=== PATIENT | female | born 1985 | race Caucasian/White ===

== ENCOUNTER 2017-09-20 21:44 | Emergency (ER) | payer SELFPAY ==
[~2017-09-20] VITALS: Ht 162.6 cm; Wt 94.3 kg
[2017-09-20] MEDS ORDERED: SODIUM CHLORIDE 0.9% 1,000 ML IV ONE (23:52)
[2017-09-20] MEDS ORDERED: ONDANSETRON HCL 4MG/2ML VIAL IV STA (23:52)
[2017-09-20] MEDS ORDERED: MORPHINE SULFATE 4 MG/ML CPJ (NOT FOR IM USE) IV STA (23:52)
[2017-09-21 00:20] LABS: CLARITY URINE CLEAR (CLEAR); COLOR URINE YELLOW (YELLOW); KETONES URINE NEGATIVE (NEGATIVE); LEUKOCYTE ESTERASE URINE NEGATIVE (NEGATIVE); NITRITE URINE NEGATIVE (NEGATIVE); OCCULT BLOOD URINE 1+ (NEGATIVE); PH URINE 6.5 (4.5-8.0); PROTEIN URINE NEGATIVE (NEGATIVE); SPECIFIC GRAVITY URINE 1.021 (1.005-1.030)
[2017-09-21 00:46] LABS: BASOPHILS % 0.3 % (0.0-2.0); EOSINOPHILS % 1.5 % (0.0-5.0); HEMATOCRIT. 44.1 % (36.0-48.0); HEMOGLOBIN. 14.6 g/dL (12.0-16.0); LYMPHOCYTES % 17.9 % (20.0-50.0); MEAN CORPUSCULAR HEMOGLOBIN 27.9 pg (28.0-32.0); MEAN CORPUSCULAR VOLUME 84.1 fL (81.0-99.0); MEAN PLATELET VOLUME 7.7 fl (7.4-10.4); MONOCYTES % 8.7 % (2.0-8.0); NEUTROPHILS % 71.6 % (40.0-76.0); PLATELET 363 x1000/uL (130-400); RED BLOOD CELL COUNT 5.24 mill/uL (4.2-5.4); RED CELL DISTRIBUTION WIDTH 13.4 % (11.6-14.6)
[2017-09-21 00:52] LABS: CHLORIDE 105 mEq/L (98-107)
[2017-09-21 00:53] LABS: HCG SCREEN NEGATIVE
[2017-09-21 03:15] VITALS: BP 115/73
== END 2017-09-21 03:21 | disposition home or self-care (01) ==
LOC: ER 21:44
DX: R10.31 Right lower quadrant pain (principal); J45.909 Unspecified asthma, uncomplicated
CPT/HCPCS: 36415; 74176; 80053; 81003; 83690; 84703; 85025; 96374; 96375; 99285; J2270; J2405; J7030; Z7610

== ENCOUNTER 2020-06-07 23:51 | Emergency (ER) | payer OTHER ==
[~2020-06-07] VITALS: Ht 165.1 cm; Wt 95.0 kg
[2020-06-08] MEDS ORDERED: ACET-2708 MT (00:46)
[2020-06-08 01:00] VITALS: BP 139/80
== END 2020-06-08 01:04 | disposition home or self-care (01) ==
LOC: ER 23:51
DX: K11.20 Sialoadenitis, unspecified (principal); R03.0 Elevated blood-pressure reading, without diagnosis of hypertension
CPT/HCPCS: 99282

== ENCOUNTER 2021-04-13 20:14 | Emergency (ER) | payer MEDICAID, OTHER ==
[~2021-04-13] VITALS: Ht 162.6 cm; Wt 90.0 kg
[~2021-04-13 20:14] MED LIST: ACET-2708 MT
[2021-04-13 22:32] LABS: CLARITY URINE CLOUDY (CLEAR); COLOR URINE ORANGE (YELLOW); KETONES URINE NEGATIVE (NEGATIVE); LEUKOCYTE ESTERASE URINE 1+ (NEGATIVE); NITRITE URINE NEGATIVE (NEGATIVE); OCCULT BLOOD URINE 3+ (NEGATIVE); PH URINE 5.5 (4.5-8.0); PROTEIN URINE 1+ (NEGATIVE); SPECIFIC GRAVITY URINE 1.026 (1.005-1.030)
[2021-04-13 22:38] LABS: BASOPHILS % 0.7 % (0.0-2.0); EOSINOPHILS % 1.1 % (0.0-5.0); HEMOGLOBIN. 13.1 g/dL (12.0-16.0); LYMPHOCYTES % 26.4 % (20.0-50.0); MEAN CORPUSCULAR HEMOGLOBIN 25.5 pg (28.0-32.0); MEAN CORPUSCULAR VOLUME 79.6 fL (81.0-99.0); MEAN PLATELET VOLUME 7.3 fl (7.4-10.4); MONOCYTES % 8.4 % (2.0-8.0); NEUTROPHILS % 63.4 % (40.0-76.0); PLATELET 455 x1000/uL (130-400); RED BLOOD CELL COUNT 5.15 mill/uL (4.2-5.4); RED CELL DISTRIBUTION WIDTH 14.5 % (11.6-14.6)
[2021-04-13 22:40] LABS: CHLORIDE 106 mEq/L (98-107)
[2021-04-14] MEDS ORDERED: CEPH250T MT (00:40)
[2021-04-14 01:42] VITALS: BP 132/77
[2021-04-14] MEDS ORDERED: IOHEXOL-300 100 ML BOTTLE ONE (02:51)
== END 2021-04-14 01:42 | disposition home or self-care (01) ==
LOC: ER 20:14
DX: T81.31XA Disruption of external operation (surgical) wound, not elsewhere classified, initial encounter (principal); R10.30 Lower abdominal pain, unspecified; D72.829 Elevated white blood cell count, unspecified; Y83.8 Other surgical procedures as the cause of abnormal reaction of the patient, or of later complication, without mention of misadventure at the time of the procedure; Y92.89 Other specified places as the place of occurrence of the external cause; D25.9 Leiomyoma of uterus, unspecified; K57.90 Diverticulosis of intestine, part unspecified, without perforation or abscess without bleeding
CPT/HCPCS: 36415; 74177; 80053; 81003; 81025; 85025; 87070; 87205; 99285; Q9967

== ENCOUNTER 2022-04-27 12:22 | Emergency (ER) | payer MEDICAID ==
[~2022-04-27] VITALS: Ht 165.1 cm; Wt 95.0 kg
[~2022-04-27 12:22] MED LIST changes: +CEPH250T MT
[2022-04-27] MEDS ORDERED: ONDANSETRON 4MG ODT PO ONE (15:45)
[2022-04-27] MEDS ORDERED: KETOROLAC 30MG/ML VIAL IM ONE (15:45)
[2022-04-27] MEDS ORDERED: ALBU6.7H3 INH (17:12)
[2022-04-27] MEDS ORDERED: GUAI237L83 MT (17:12)
[2022-04-27 18:12] VITALS: BP 128/92
== END 2022-04-27 18:14 | disposition home or self-care (01) ==
LOC: ER 12:22
DX: J40 Bronchitis, not specified as acute or chronic (principal)
CPT/HCPCS: 71045; 87804; 96372; 99284; J1885; Q0162; Z7610